=== PATIENT | male | born 1950 | race Caucasian/White ===

== ENCOUNTER → 2024-02-05 | Outpatient (CLI) | payer MEDICARE ==
[~2024-02-05] MED LIST: Iohexol 300 - 10 ML VIAL IV ONE; LEVITRA PO; LIPITOR20 MG PO; Triamcinolone 40 MG/ML 1 ML VIAL IJ ONE
== END ==
LOC: COL.RAD 12:31
DX: M16.12 Unilateral primary osteoarthritis, left hip (principal)
CPT/HCPCS: J0665; J3301; Q9967